=== PATIENT | male | born 2000 | race Caucasian/White ===

== ENCOUNTER 2024-07-19 21:54 | Emergency (ER) | payer MEDICAID, SELFPAY ==
[2024-07-19 22:04] VITALS: PULSE 118; RESP 16; O2SAT 98
--- NOTE | 2024-07-19 22:05 | EDRME_ITS ---
Rapid Medical Screening Exam [facility] [place] Arrival date/time: 07/19/24 21:54 23-year-old male with no known medical history presents to the emergency room with a chief complaint of nausea and vomiting x 2 hours. Per EMS the patient took an unknown amount of cannabis brownies, took some [place]'s, and Xanax bars. I have greeted and performed a focused initial assessment of this patient. A comprehensive ED assessment and evaluation of the patient, analysis of all test results, and completion of the medical decision making process will be conducted by additional ED providers. Vital signs reviewed by provider: Yes
--- NOTE | 2024-07-19 22:10 | PC.NURSE ---
Pt awake, lethargic, and nauseated. Pt took multiple pills Xanax, [place], cocaine and has been drinking since noon time per pt. Familia charles SI or HI.
[2024-07-19 22:11] VITALS: BMI 18.9
[2024-07-19 22:17] VITALS: BP 119/68; PULSE 98; RESP 18; TEMP 36.8; O2SAT 98
[2024-07-19] MEDS: ONDANSETRON ODT 4 MG TABRAP PO (22:20)
[2024-07-19] MEDS: HALOPERIDOL LACT INJ 5 MG/ML VIAL IM (22:21)
[2024-07-19 22:26] LABS: Basophils # (Auto) 0.1 Thou/mm3 (0.0-0.2); Basophils % (Auto) 0 % (0-2.5); Eosinophils % (Auto) 0 % (0-10); Hematocrit 38.9 % (41.0-53.0); Hemoglobin 13.3 g/dL (13.5-16.0); Immature Granulocytes % (Auto) 1 % (0-0); Immature Granulocytes Auto 0.11 Thou/mm3 (0.00-0.00); Lymphocytes # (Auto) 2.7 Thou/mm3 (1.0-4.8); Lymphocytes % (Auto) 12 % (10-50); Mean Corpuscular HGB Conc 34.2 g/dl (31.0-37.0); Mean Corpuscular Hemoglobin 29.9 pg (25.0-35.0); Mean Corpuscular Volume 87 fL (80-100); Monocytes # (Auto) 1.8 Thou/mm3 (0.0-0.8); Monocytes % (Auto) 8 % (0-12); Neutrophils # (Auto) 18.6 Thou/mm3 (1.8-7.7); Neutrophils % (Auto) 80 % (37-80); Nucleated Red Blood Cell % 0 /100 WBC (0); Platelet Count 401 Thou/mm3 (140-440); RDW Standard Deviation 42.2 fL (35.1-43.9); Red Blood Count 4.45 Miln/mm3 (4.50-5.90)
[2024-07-19 22:47] LABS: White Blood Count 23.3 Thou/mm3 (3.8-10.6)
[2024-07-19 22:49] LABS: Alanine Aminotransferase 14 U/L (10-49); Albumin, Serum 5.1 gm/dL (3.5-5.0); Albumin/Globulin Ratio 1.9 (1.2-2.2); Alcohol, Blood Medical < 3.0 mg/dL (0-10.0); Alkaline Phosphatase 129 U/L (46-116); Anion Gap 7 (7-16); Aspartate Amino Transferase 28 U/L (0-34); BUN/Creatinine Ratio 13 Ratio (12-20); Bilirubin,Total 0.3 mg/dL (0.3-1.2); Blood Urea Nitrogen 12 mg/dL (9-23); Calcium 9.1 mg/dL (8.3-10.6); Calcium (Corrected) 9.1 mg/dL (8.5-10.1); Carbon Dioxide 27.6 mMol/L (20.0-31.0); Chloride 106 mMol/L (98-107); Creatinine (Component) 0.9 mg/dL (0.6-1.3); Globulin 2.7 gm/dL (2.3-3.5); Glucose 76 mg/dL (74-106); Osmolality,Calculated 279 (275-295); Sodium 141 mMol/L (136-145); Total Protein 7.8 gm/dL (5.7-8.2); eGFR > 60 See Note
[2024-07-19 23:00] VITALS: BP 122/69; PULSE 92; RESP 18; O2SAT 96
[2024-07-19 23:04] LABS: Amphetamine/Methamp Scrn,U Positive (Negative); Barbiturate Screen,Urine Negative (Negative); Benzodiazepines Screen,Urine Positive (Negative); Benzoylecgonine Screen, Ur Negative (Negative); Fentanyl Screen,Urine Positive (Negative); Opiate Screen,Urine Negative (Negative); THC Screen,Urine Positive (Negative)
[2024-07-20] VITALS: BP 115/65; PULSE 68; RESP 18; O2SAT 94
[2024-07-20 00:13] VITALS: BP 115/65; PULSE 78; RESP 18; O2SAT 97
--- NOTE | 2024-07-20 01:05 | PD.EDNV ---
Nausea/Vomit./Diarrhea-RME/HPI General Chief complaint: Nausea/Vomiting/Diarrhea Stated complaint: NAUSEA/VOMITING Time Seen by Provider: 07/19/24 23:32 Arrival date/time: 07/19/24 21:54 Limitations: no limitations RME / HPI RME / HPI Narrative: 07/19/24 21:54 23-year-old male with no known medical history presents to the emergency room with a chief complaint of nausea and vomiting x 2 hours. Per EMS the patient took an unknown amount of cannabis brownies, took some [place]'s, and Xanax bars. I have greeted and performed a focused initial assessment of this patient. A comprehensive ED assessment and evaluation of the patient, analysis of all test results, and completion of the medical decision making process will be conducted by additional ED providers. ------- Dr. Dale's Main ED Evaluation: 23yo male with no significant past medical history BIBA from home presents to the ED for complaints of nausea and vomiting x 2 hours [employer]. Per EMS, patient endorsed eating an unknown amount of marijuana brownies, as well as took [place] and Xanax bars. Amount taken is unknown. Related Data Allergies Allergy/AdvReac Type Severity Reaction Status Date / Time No Known Allergies Allergy Unknown Verified 03/02/23 21:43 Review of Systems Review of Systems Systems Reviewed: All systems reviewed, normal except as documented Past Medical History Past Medical History CARDIAC: Negative Congestive Heart Failure RESPIRATORY: Negative Chronic Obstructive Pulmonary Disease (COPD) GENITOURINARY: Negative Renal Disease ENDOCRINE: Negative Diabetes Mellitus Type 1 or Diabetes Mellitus Type 2 Social History SMOKING STATUS: Former smoker ED Exam General Limitations: Present no limitations General appearance: Present in no apparent distress and other (sleepy, but easily arousable) Head Head exam: Present atraumatic Eye Eye exam: Present normal appearance, PERRL and EOMI ENT ENT exam: Present normal exam, normal oropharynx and mucous membranes moist Neck Neck exam: Present normal inspection, full ROM and trachea midline Chest Chest inspection: Present normal inspection and symmetric chest wall rise Respiratory Respiratory exam: Present normal lung sounds bilaterally Cardiovascular Cardiovascular exam: Present regular rate, normal rhythm and normal heart sounds Abdominal Exam Abdominal exam: Present soft and normal bowel sounds Extremities Exam Extremities exam: Present normal inspection and full ROM Back Exam Back exam: Present normal inspection and full ROM Neurological Exam Neurological exam: Present CN II-XII intact and other (sleepy, but easily arousable) Skin Skin exam: Present warm, dry, intact and normal color Course Course Course Narrative: [id number]: Notified by the charge nurse that the patient eloped while his IV was still in place. Police notified. Quality Measures none Orders Category Date Time Status Acetaminophen Stat Lab 07/20/24 01:06 Completed Alcohol, Blood Medical Stat Lab 07/19/24 22:07 Completed CBC Stat Lab 07/19/24 22:07 Completed CMP [Comprehensive Metabolic Panel] Stat Lab 07/19/24 22:07 Completed Drug Screen,Urine Stat Lab 07/19/24 22:30 Completed Haloperidol Lactate [Haldol Inj] Med 07/19/24 21:59 Discontinued 5 mg IM X1 ONE Ondansetron Odt [Zofran Odt] Med 07/19/24 21:59 Discontinued 4 mg PO X1 ONE Sodium Chloride 0.9% 1000 ml [Ns] 1,000 ml Med 07/20/24 01:06 Discontinued IV 999 mls/hr Vital Signs Vital signs: Vital Signs Temperature 98.3 F 07/19/24 22:17 Pulse Rate 98 07/19/24 22:17 Respiratory Rate 18 07/19/24 22:17 Blood Pressure 119/68 07/19/24 22:17 Pulse Oximetry (%) 98 07/19/24 22:17 Oxygen Delivery Method Room Air 07/19/24 22:17 Nausea/Vomiting/Diarrhea Patient data External records reviewed:: [facility] previous records (Per chart review, patient was seen here on 06/28/22 for opiate addiction.) Clinical information provided by:: EMS Social determinants that could affect healthcare access:: substance use Patient has the following chronic illnesses:: none How is presenting disease/condition affected by chronic disease/condition?: no chronic disease Evaluation data The following diagnostics were reviewed and interpreted by me:: lab results Lab and/or radiology exams considered but not ordered:: none Interpretation Summary: WBC count is elevated at 23.3, CMP is normal, UDS is positive for fentanyl, amphetamines, benzodiazepines, and marijuana. Medications / Prescriptions Medications / Prescriptions considered but not ordered:: none Medication administrations:: Medication Administration History Discontinued Medications Haloperidol Lactate (Haloperidol Lact Inj 5 Mg/Ml Vial) 5 mg IM X1 ONE Stop: 07/19/24 22:00 Last Admin: 07/19/24 22:21 Dose: 5 mg Documented By: ALISHA Sodium Chloride (Ns) 1,000 mls @ 999 mls/hr IV .Q1H1M ONE Stop: 07/20/24 02:06 Last Admin: 07/20/24 01:17 Dose: 999 mls/hr Documented By: ALISHA Ondansetron HCl (Ondansetron Odt 4 Mg Tabrap) 4 mg PO X1 ONE; Protocol Stop: 07/19/24 22:00 Last Admin: 07/19/24 22:20 Dose: 4 mg Documented By: ALISHA see above Consultations Consultation(s) initiated? (list below): No Diagnosis Nausea Differential Diagnosis: drug-induced nausea and vomiting, dehydration and other (electrolyte abnormality) Most likely diagnosis given after review of the tests above:: pt eloped Admission Indicated Admission indicated?: not indicated Admission Request Was there a request for admission?: No Disposition Plan Disposition Plan: Discharge Discharge Attestation Discharge Attestation: The patient and all family members were given an opportunity to ask questions and understood the discharge instructions. Discharge instructions specifically effects, indications for sooner follow up or return to the emergency department, and the expected course of current diagnosis. Patient condition: Stable Discharge Plan Plan Patient Disposition: Elopement Prescriptions/Referrals Referrals: No Primary/Family,Physician [Primary Care Provider] - In 1 week Problem List Clinical Impression: Dehydration, Drug-induced nausea and vomiting Patient/Caregiver Discharge Instructions Print Language: Polish
[2024-07-20] MEDS: SODIUM CHLORIDE 0.9% 1000 ML 1,000 ML 999 ML IV (01:17)
--- NOTE | 2024-07-20 01:55 | PC.NURSE ---
PT WALKED OUT OF THE AMBULANCE BAY DOOR AT THIS TIME.
--- NOTE | 2024-07-20 02:00 | PC.NURSE ---
Pt eloped, did not tell staff that he was leaving. IV disconnected, unable to find SL in bed. Ildefonso RN chg nurse informed.
[2024-07-20 02:14] LABS: Acetaminophen < 2.0 mcg/mL (10.0-20.0)
--- NOTE | 2024-07-20 02:45 | PC.NURSE ---
PPD was notified that pt efloped and possibly IV is still inplace. PPD brought pt back ED, SL dc'd with all parts intact and pressure drsg applied. Pt enc to stay but refused.
== END 2024-07-20 02:00 | disposition left against medical advice (07) ==
LOC: SERX 07-20 03:23
PROVIDERS: Nurse Practitioner Family; Emergency Provider Emergency Medicine
DX: E86.0 Dehydration (principal); R11.2 Nausea with vomiting, unspecified; Z53.29 Procedure and treatment not carried out because of patient's decision for other reasons
CPT/HCPCS: 36415; 80053; 80307; 80320; 80329; 85025; 96372; 99283; J1630; J7030; Q0162; G0480